=== PATIENT | female | born 1955 | race Caucasian/White ===

== ENCOUNTER 2018-05-12 11:07 | Day surgery (SDC) | payer OTHER ==
[2018-05-12] MEDS ORDERED: ceFAZolin 2 GM/DEXTROSE 100 ML IV ONE (11:15)
--- NOTE | 2018-05-12 11:15 | PDHPUP ---
History & Physical Update H&P update statement: This history and physical update is based on an assessment of the patient which was completed after admission or registration (within 24 hours), but prior to the surgery/procedure. NO CHANGES H&P update: H&P reviewed & patient examined (no changes), no change in patient' s condition since H&P completed H&P changes: None
[2018-05-12] MEDS ORDERED: LIDOCAINE 2% 5 ML SDV ONE (11:45)
[2018-05-12] MEDS ORDERED: BUPIVACAINE 0.5% 30 ML SDV ONE (11:45)
[2018-05-12] MEDS ORDERED: BACITRACIN 50,000 UNITS/10 ML SYR IRR ONE (11:45)
[2018-05-12] MEDS ORDERED: ROPIVACAINE HCL 150 MG/30 ML INJ ONE (11:45)
[2018-05-12] MEDS ORDERED: LR 1,000 ML IV ONE (11:50)
[2018-05-12] MEDS ORDERED: MIDAZOLAM 2 MG/2 ML VIAL ONE (11:53)
[2018-05-12] MEDS ORDERED: SCOPOLAMINE HYDROBROMIDE 1 MG/3 DAYS PATCH TD ONE (11:54)
[2018-05-12] MEDS ORDERED: MIDAZOLAM 2 MG/2 ML VIAL IVP ONE (11:54)
--- NOTE | 2018-05-12 11:54 | PDANEPAE ---
ANE History of Present Illness Left bunion, here for bunionectomy ANE Past Medical History - Cardiovascular History Hx Hypertension: No Hx Arrhythmias: No Hx Chest Pain: No Hx Coronary Artery / Peripheral Vascular Disease: No Hx CHF / Valvular Disease: No Hx Palpitations: No - Pulmonary History Hx COPD: No Hx Asthma/Reactive Airway Disease: No Hx Recent Upper Respiratory Infection: No Hx Oxygen in Use at Home: No Hx Sleep Apnea: No Sleep Apnea Screening Result - Last Documented: Negative - Neurologic History Hx Cerebrovascular Accident: No Hx Seizures: No Hx Dementia: No - Endocrine History Hx Diabetes: No - Renal History Hx Renal Disorders: No - Liver History Hx Hepatic Disorders: No - Neurological & Psychiatric Hx Hx Neurological and Psychiatric Disorders: No - Cancer History Hx Cancer: No 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 - Congenital Disorder History Hx Congenital Disorders: No - GI History Hx Gastrointestinal Disorders: No - Other Health History Other Health History: NEG - Chronic Pain History Chronic Pain: Yes (FEET MILAGROS) - Surgical History Prior Surgeries: R JOSE ANE Review of Systems Review of Systems: - Exercise capacity METS (RN): 5 METS ANE Patient History - Allergies Allergies/Adverse Reactions: No Known Allergies Allergy (Unverified 05/06/18 11:16) - Home Medications Home Medications: Calcium 05/06/18 [Last Taken 05/12/18] Multivitamin 05/06/18 [Last Taken 05/12/18] - NPO status NPO Since - Liquids (Date): 05/12/18 NPO Since - Liquids (Time): 08:15 NPO Since - Solids (Date): 05/11/18 NPO Since - Solids (Time): 18:30 - Smoking Hx Smoking Status: Never smoked - Family Anes Hx Family Hx Anesthesia Complications: NEG ANE Labs/Vital Signs - Vital Signs Blood Pressure: 133/77 Heart Rate: 76 Respiratory Rate: 16 O2 Sat (%): 95 Height: 157.48 cm Weight: 60.781 kg ANE Physical Exam - Airway Neck exam: FROM Mallampati Score: Class 2 Mouth exam: normal dental/mouth exam - Pulmonary Pulmonary: no respiratory distress, no rales or rhonchi - Cardiovascular Cardiovascular: regular rate and rhythym, no murmur, rub, or gallop - ASA Status ASA Status: II ANE Anesthesia Plan Anesthesia Plan: GA w LMA Total IV Anesthesia: Yes
[2018-05-12] MEDS ORDERED: SCOPOLAMINE HYDROBROMIDE 1 MG/3 DAYS PATCH TD SCH (12:00)
[2018-05-12] MEDS ORDERED: LIDOCAINE 2% 100 MG/5 ML SYR ONE (12:01)
[2018-05-12] MEDS ORDERED: ONDANSETRON 4 MG/2 ML VIAL ONE (12:01)
[2018-05-12] MEDS ORDERED: DEXAMETHASONE 4 MG/ML VIAL ONE (12:01)
[2018-05-12] MEDS ORDERED: fentaNYL 100 MCG/2 ML INJ ONE ×2 (12:02→13:52)
[2018-05-12] MEDS ORDERED: PROPOFOL 200 MG/20 ML VIAL ONE (12:02)
[2018-05-12] MEDS ORDERED: PROPOFOL/EMULSION 500 MG/50 ML BOTTLE IV ONE ×2 (12:02→12:42)
[2018-05-12] MEDS ORDERED: MEPERIDINE 25 MG/0.5 ML AMP IVP PRN (13:42)
[2018-05-12] MEDS ORDERED: LR 500 ML IV PRN (13:42)
[2018-05-12] MEDS ORDERED: HYDROCODONE/APAP 5/325 TAB PO PRN (13:42)
[2018-05-12] MEDS ORDERED: PROMETHAZINE HCL 25 MG/ML INJ IVP PRN (13:42)
[2018-05-12] MEDS ORDERED: DIAZEPAM 5 MG/ML 1 ML SYR IVP PRN (13:42)
[2018-05-12] MEDS ORDERED: fentaNYL 100 MCG/2 ML INJ IVP PRN (13:42)
[2018-05-12] MEDS ORDERED: NALOXONE HCL 0.4 MG/ML INJ IVP PRN (13:42)
--- NOTE | 2018-05-12 14:42 | POSTANESTH ---
Post Anesthetic Evaluation Cardiovascular Status: Normal, Stable Respiratory Status: Normal, Stable Level of Consciousness/Mental Status: Can Participate in Eval, Alert and Oriented Pain Control: Adequate, Prn Tx Ordered Nausea/Vomiting Control: Adequate, Prn Tx Ordered Complications Possibly Related to Anesthesia: None Noted
--- NOTE | 2018-05-12 15:28 | POSTOPPROG ---
Post Op Note Date of Operation: 05/12/18 Surgeon: Nkechi Stoddard Electric Dolly Operator: Rosey Stoddard Anesthesiologist: Caitlin Damon MD Anesthesia: LMA Pre-op Diagnosis: bunion/HAV left foot Post-op Diagnosis: bunion/HAV left foot Indication: pain/deformity Procedure: Double osteotomy, dash procedure and distal beata procedure Findings: medial bony prominence Inf/Abcess present in the surg proc area at time of surgery?: No Depth: Deep Incisional (Fascial) EBL: Minimal Complications: none Drains: Other (silastic drain)
[2018-05-12 16:51] VITALS: BP 120/77
--- NOTE | 2018-05-13 00:29 | GOP ---
[f rep st] OPERATIVE REPORT DATE OF OPERATION: 05/12/2018 SURGEON: Nkechi Stoddard DPM TOUR LEADER: Rosey Stoddard DPM. ANESTHESIA: Light general. ANESTHESIOLOGIST: Ana Paula Damon DO, PREOPERATIVE DIAGNOSIS: Bunion hallux abductovalgus deformity, left foot. POSTOPERATIVE DIAGNOSIS: Bunion hallux abductovalgus deformity, left foot. PROCEDURE PERFORMED: Double osteotomy, Enrico type of osteotomy with Addy procedure, and screw and s taple fixation, left foot. FINDINGS: INDICATIONS: Painful bunion deformity on both feet. However, the left is worse. At this time she e lects to proceed with surgery. Conservative treatment efforts have failed to provide her with relief . DESCRIPTION OF PROCEDURE: Patient was brought into the operating room, placed on the operating table in the supine position. Intravenous sedation administered by the anesthesiologist. A posterior tib ial and peripheral nerve block was obtained utilizing a total of 10 cc of bupivacaine 0.5% and 10 cc of 2% xylocaine plain. The lower extremity was prepped and draped in the usual sterile manner. Afte r the limb had been elevated, it was exsanguinated with an Esmarch bandage and ankle tourniquet infla madeline to 230 mmHg and the procedure was begun. Webril padding utilized under the ankle cuff. Attention was directed towards the dorsal medial aspect of the 1st metatarsophalangeal joint where a linear incision was created. Incision was carefully deepened with care of neurovascular structures a nd clamp and cauterize bleeders. Linear capsulotomy was performed exposing the hypertrophied medial eminence. There was some cartilage thinning and erosion on the plantar central medial aspect of the metatarsal head. Utilizing the [place] elevator, plantar lateral adhesions were released. With med ial pressure to the 1st ray, there was no reduction in the 1st metatarsal. Therefore, it was decided that adductor tendon transfer was not needed and/or necessary. Then, utilizing the sagittal saw, me dial hypertrophied eminence was resected, and then utilizing a Eleuterio osteotomy guide and a K-wire, an osteotomy was created Enrico type with a longer dorsal arm and shorter plantar arm, and the capital fragment was transposed laterally. C-arm pictures were taken throughout the procedure to verify alig nment and positioning. Osteotomy was secured with two Arthrex headless screws, both 2.4 and measurin g 14 mm in length. Osteotomy was stable and congruent loading of the forefoot. Satisfactory alignme nt was noted of the hallux, except there was curvature noted at the distal portion of the hallux abut ting the 2nd digit. She had an increased distal articular set angle, and therefore, it was decided t o proceed with the Addy procedure. Addy procedure; indication abduction at the hallux interphalangeal joint. Long hallux. Incision was extended distally and deepened carefully. Periosteum excised then utilizing K-wire, Eleuterio osteotomy guide, and sagittal saw, a transverse type of Addy osteotomy was performed removing a wedge of bone with the base medially and apex laterally. [place] elevator was utilized under the failing to protect the long flexor tendon. Wedge of bone was removed. The hallux was reduced. Lateral hinge also inte rrupted. Temporary fixation with a pin, and then utilizing the ArthAlter Way staple system, a 9 x 10 mm Ar threx staple was placed across the Addy osteotomy which was noted to be secure. However, there was s light gapping medially and plantarly, and it was decided to proceed with a 2nd point of fixation. Th erefore, a 2nd staple. 2nd staple inserted. Osteotomy was now stable and secure. On C-arm there is slight medial displacement and slight over-correction of distal articular set angle. However, with loading the forefoot, the hallux alignment was excellent, and therefore, there was no concern. Wound was copiously irrigated with bacitracin irrigation solution throughout the procedure. Hypertrophied medial capsule 1st metatarsal head removed and then deep closure of the capsule achieve d with 2-0 and 3-0 Vicryl. Also of note prior to performing the Addy procedure the extensor hallucis brevis muscle tendon was also released to help improve hallux alignment. Capsular closure achieved with 2-0 and 3-0 Vicryl. Tourniquet was released, and a normal hyperemic r esponse was noted to all digits. However, there were bleeders which were cauterized and then some co ntinuous oozing. Gel-Foam and Surgicel were utilized to help control the bleeding. Surgicel removed . Gel-Foam left in place. Bleeding controlled. Subcutaneous closure achieved with Monocryl 4-0. A lso of note silastic drain was placed to reduce risk of hematoma formation. Skin was closed with 4-0 Prolene in a horizontal mattress fashion and simple interrupted sutures. Dressings included Xerofor m, 4x4s, fluffs, and Ricardo as well as tape and an Storm bandage. Patient tolerated the procedure and a nesthesia well and left the operating room with vital signs stable and vascular status intact to all digits. There were no complications. Patient is to follow up in the office in 2 days for wound chec k. to provide her transportation home. They have a cryo cuff type of machine at home to use . Prognosis good. /[id number]/MODL
[2018-05-15] MEDS ORDERED: PATCH REMOVAL 1 EA PATCH TD SCH (11:55)
== END 2018-05-12 16:51 | disposition home or self-care (01) ==
LOC: FSGY 11:07
PROVIDERS: ATTEND Podiatrist
DX: M20.12 Hallux valgus (acquired), left foot (principal); Z96.641 Presence of right artificial hip joint; Z85.828 Personal history of other malignant neoplasm of skin
CPT/HCPCS: C1713; J0690; J1100; J2001; J2250; J2405; J2704; J2795; J3010